=== PATIENT | female | born 1965 | race Caucasian/White ===

== ENCOUNTER 2025-03-08 21:30 | Emergency (ER) | payer BC, MEDICAID, OTHER ==
[2025-03-08] MEDS: Take Home: oxyCODONE HCl 5 MG Tab, 5 Tab Pack PO ONE (22:25)
[2025-03-08] MEDS: Ketorolac 30 MG/ML SDV IM ONE (22:25)
== END 2025-03-08 22:48 | disposition home or self-care (01) ==
LOC: LL.ED 21:30
DX: S80.01XA Contusion of right knee, initial encounter (principal); R79.89 Other specified abnormal findings of blood chemistry; W01.0XXA Fall on same level from slipping, tripping and stumbling without subsequent striking against object, initial encounter
CPT/HCPCS: 73560; 96372; 99283; 99284; A9270; J1885